=== PATIENT | female | born 1980 | race Two or more races ===

== ENCOUNTER → 2022-03-01 07:18 | Outpatient (CLI) | payer OTHER | END | disposition home or self-care (01) | LOC: LAB 07:18 | PROVIDERS: ATTEND Obstetrics & Gynecology | DX: Z20.828 Contact with and (suspected) exposure to other viral communicable diseases (principal); Z20.818 Contact with and (suspected) exposure to other bacterial communicable diseases ==

== ENCOUNTER 2024-04-03 05:51 | Day surgery (SDC) | payer OTHER ==
[~2024-04-03 05:51] MED LIST: HORIZANT600 MG PO; TORADOL60 MG IM; ZANAFLEX4 M1 PO
[2024-04-03] MEDS ORDERED: CEFAZOLIN SODIUM 1,000 MG VIAL IV ONE (10:30)
[2024-04-03] MEDS ORDERED: DEXAMETHASONE SODIUM PHOSP/PF 10 MG/ML VIAL ONE (11:37)
[2024-04-03] MEDS ORDERED: METOCLOPRAMIDE HCL 5 MG/ML VIAL ONE (11:37)
[2024-04-03] MEDS ORDERED: PROMETHAZINE HCL 50 MG/ML AMPUL IM ONE (11:37)
== END 2024-04-03 13:05 | disposition home or self-care (01) ==
LOC: CIR.AMB 05:51
PROVIDERS: ATTEND Surgery Surgery of the Hand
DX: M67.843 Other specified disorders of tendon, right hand (principal); M65.841 Other synovitis and tenosynovitis, right hand; Z88.6 Allergy status to analgesic agent; Z88.1 Allergy status to other antibiotic agents; G43.909 Migraine, unspecified, not intractable, without status migrainosus; K59.00 Constipation, unspecified